=== PATIENT | female | born 1970 | race Caucasian/White ===

== ENCOUNTER 2022-03-15 08:27 | Inpatient (IN) ==
[~2022-03-15 08:27] MED LIST: Buffered Lidocaine 1% SYRIN 1 ml INTRADERM ONE; Lactated Ringers 1000 ml BAG 1,000 ML IV SCH
[2022-03-15] MEDS ORDERED: Propofol 10 MG/ML 20 ML BTL ONE (08:30)
[2022-03-15] MEDS ORDERED: Dexamethasone IV 4 MG/ML VIAL 1 ml VIAL ONE (08:30)
[2022-03-15] MEDS ORDERED: Ondansetron 4 mg VIAL 2 MG/ML 2 ml VIAL ONE (08:30)
[2022-03-15] MEDS ORDERED: Rocuronium 50 mg VIAL 10 mg/ml 5 ml VIAL (50 mg) ONE ×2 (08:31→10:26)
[2022-03-15] MEDS ORDERED: Lidocaine 2% PF 5 ML VIAL ONE (08:31)
[2022-03-15] MEDS ORDERED: fentaNYL 100 mcg/2 ml 50 MCG/ML VIAL ONE ×2 (08:31→12:53)
[2022-03-15] MEDS ORDERED: Scopolamine 1 mg/72hr PATCH ONE (08:53)
[2022-03-15] MEDS ORDERED: Heparin 5000 UNITS/ML 1 mL VIAL ONE (08:53)
[2022-03-15] MEDS ORDERED: ceFAZolin 2 GM PREMIX 2 GM/50 ML BAG ONE (08:53)
[2022-03-15] MEDS ORDERED: Methylene Blue 0.5 % 50 MG/10 ML AMP IV ONE (09:11)
[2022-03-15] MEDS ORDERED: Dexmedetomidine 200 mcg/2 ml 2 ml VIAL (200 mcg) ONE (09:27)
[2022-03-15] MEDS ORDERED: Sodium Chloride 0.9% 10 ML ONE ×2 (09:28→09:30)
[2022-03-15] MEDS ORDERED: HYDROmorphone 0.5 MG/0.5 ML SYRINGE ONE (10:33)
[2022-03-15] MEDS ORDERED: Acetaminophen IV 1 GM/100ML 1,000 MG/100 ML BAG IV ONE (10:45)
[2022-03-15] MEDS ORDERED: HYDROcodone/ACET. 7.5/325 LIQ 15 ML UDC PO PRN (12:18)
[2022-03-15] MEDS ORDERED: HYDROmorphone 0.5 MG/0.5 ML SYRINGE IV SLOW PU PRN (12:18)
[2022-03-15] MEDS ORDERED: Naloxone 0.4 mg VIAL 0.4 mg/ml 1 ml VIAL IV PRN (12:50)
[2022-03-15] MEDS ORDERED: fentaNYL 100 mcg/2 ml 50 MCG/ML VIAL IV PRN (12:50)
[2022-03-15] MEDS ORDERED: Prochlorperazine 5 mg/ml 2 ml VIAL (10 mg) IV PRN (12:50)
[2022-03-15] MEDS: Lactated Ringers 1000 ml BAG 1,000 ML IV SCH ×2 (13:41→20:56)
[2022-03-15] MEDS: Ondansetron 4 mg VIAL 2 MG/ML 2 ml VIAL IV PRN ×2 (13:47→21:09)
[2022-03-15] MEDS: Heparin 5000 UNITS/ML 1 mL VIAL SUBCUT SCH ×2 (16:26→21:23)
[2022-03-15] MEDS ORDERED: Prochlorperazine 5 mg/ml 2 ml VIAL (10 mg) IV ONE (16:47)
[2022-03-15] MEDS: Famotidine IV 10 MG/ML 2 ml VIAL (20 mg) IV SLOW PU SCH (21:05)
[2022-03-16] MEDS: Lactated Ringers 1000 ml BAG 1,000 ML IV SCH ×2 (03:49→10:20)
[2022-03-16] MEDS: Heparin 5000 UNITS/ML 1 mL VIAL SUBCUT SCH ×2 (06:34→14:05)
[2022-03-16] MEDS: Famotidine IV 10 MG/ML 2 ml VIAL (20 mg) IV SLOW PU SCH (09:04)
[2022-03-16 12:28] VITALS: BP 114/76
[2022-03-16] MEDS ORDERED: D5W 1/2 NS KCl 20 meq 1000 ml 1,000 ML IV SCH (13:00)
[2022-03-16] MEDS: Ondansetron 4 mg VIAL 2 MG/ML 2 ml VIAL IV PRN (14:35)
== END 2022-03-16 16:15 | disposition home or self-care (01) | DRG 328 ==
LOC: AA 08:27 → SSU 13:35
PROVIDERS: ADMIT Surgery; ATTEND Surgery